=== PATIENT | male | born 2000 | race Caucasian/White ===

== ENCOUNTER 2018-04-17 02:38 | Emergency (ER) | payer OTHER ==
[2018-04-17] MEDS ORDERED: LIDOCAINE 2% VISCOUS 15 ML UDCUP PO ONE (03:18)
[2018-04-17] MEDS ORDERED: MAG HYDROX/AL HYDROX/SIMETH 30 ML UDCUP PO ONE (03:18)
--- NOTE | 2018-04-17 03:18 | EDPHY ---
H & P Stated Complaint: Anxiety - CP, SOB Time Seen by Provider: 04/17/18 03:11 HPI/ROS: Chief Complaint: Chest pain, shortness of breath, anxious HPI: 17-year-old male started feeling anxious this morning. [place] like he was having a hard time getting up to breathe. He went outside to breathe and some cool air. He has had some moderate tightness across his chest is feeling very anxious and restless. He has some mild shortness of breath. No fevers or chills. No cough. No nausea vomiting or diarrhea. He has never had a similar episode in the past. No history of anxiety. He smokes E cigarettes. No alcohol or other drug use tonight. No fevers or chills. No cough. No nausea vomiting diarrhea. He has not have a family history of coronary artery disease or sudden cardiac . ROS: 10 point Review of Systems is negative except as noted in the HPI. PMH: Denies Social History: Uses E cigarettes, occasional alcohol, occasional Family History: non-contributory Physical Exam: Gen: Awake, Alert, No Distress HEENT: Nose: no rhinorrhea Eyes: PERRLA, EOMI Mouth: Moist mucosa Neck: Supple, no JVD Chest: nontender, lungs clear to auscultation Heart: S1, S2 normal, no murmur Abd: Soft, non-tender, no guarding Back: no CVA tenderness, no midline tenderness Ext: no edema, non-tender Skin: no rash Neuro: CN II-XII intact, Sensation grossly intact, Strength 5/5 in bilateral upper and lower extremities - Personal History Current Tetanus/Diphtheria Vaccine: Yes Current Tetanus Diphtheria and Acellular Pertussis (TDAP): Yes - Medical/Surgical History Hx Asthma: No Hx Chronic Respiratory Disease: No Hx Diabetes: No Hx Cardiac Disease: No Hx Renal Disease: No Hx Cirrhosis: No Hx Alcoholism: No Hx HIV/AIDS: No Hx Splenectomy or Spleen Trauma: No Other PMH: Denies - Social History Smoking Status: Light smoker Constitutional: Initial Vital Signs Temperature (C) 36.5 C 04/17/18 02:40 Heart Rate 79 04/17/18 02:40 Respiratory Rate 16 04/17/18 02:40 Blood Pressure 130/78 H 04/17/18 02:40 O2 Sat (%) 97 04/17/18 02:40 O2 Delivery Mode Room Air Allergies/Adverse Reactions: No Known Allergies Allergy (Unverified 04/17/18 02:45) Home Medications: Medication Instructions Recorded NK [No Known Home Meds] 04/17/18 Medical Decision Making ED Course/Re-evaluation: Patient is improved after GI cocktail. Symptoms are consistent likely with reflux. Chest x-ray is negative. Does not have any symptoms or history suggestive of acute coronary syndrome or acute pulmonary process. Will discharge continuing Pepcid, follow up with [facility] for further evaluation. - Data Points Medications Given: Discontinued Medications Al Hydroxide/Mg Hydroxide (Maalox Susp) 30 ml PO ONCE ONE Stop: 04/17/18 03:19 Last Admin: 04/17/18 03:25 Dose: 30 ml Lidocaine (Lidocaine 2% Viscous) 15 ml PO ONCE ONE Stop: 04/17/18 03:19 Last Admin: 04/17/18 03:25 Dose: 15 ml Departure - Departure Disposition: Home, Routine, Self-Care Clinical Impression: GERD (gastroesophageal reflux disease) Condition: Good Instructions: Gastroesophageal Reflux Disease (ED) Additional Instructions: Start taking [id number] antacid such as Pepcid daily for your symptoms. Follow up with [facility] in 2-3 days for further evaluation. Return to the emergency department for worsening chest pain, shortness of breath , palpitations, fainting, or any other concerns. Referrals: YON[facility] Ricci,. [Clinic] - As per Instructions
[2018-04-17] MEDS ORDERED: FAMOTIDINE 20 MG TAB PO ONE (04:25)
[2018-04-17 04:34] VITALS: BP 115/70
== END 2018-04-17 04:37 | disposition home or self-care (01) ==
DX: K21.9 Gastro-esophageal reflux disease without esophagitis (principal); F17.200 Nicotine dependence, unspecified, uncomplicated